=== PATIENT | male | born 1950 | race Two or more races ===

== ENCOUNTER 2020-01-06 10:07 | Day surgery (SDC) | payer OTHER, SELFPAY ==
[~2020-01-06] VITALS: Ht 162.6 cm; Wt 81.6 kg
[2020-01-06] MEDS ORDERED: MIDAZOLAM 2 MG/2 ML VIAL ONE ×2 (11:56→12:28)
[2020-01-06] MEDS ORDERED: fentaNYL citrate 0.05 MG/ML VIAL ONE (11:56)
[2020-01-06] MEDS ORDERED: LIDOCAINE 2% 100 MG/5 ML UJET TP ONE (11:56)
[2020-01-06] MEDS ORDERED: MIDAZOLAM 2 MG/2 ML VIAL IVP ONE (13:05)
[2020-01-06] MEDS ORDERED: fentaNYL citrate 0.05 MG/ML VIAL IVP ONE (13:05)
== END 2020-01-06 13:45 | disposition home or self-care (01) ==
LOC: MDS 10:07 → MFCC 10:07 → MDS 13:45
PROVIDERS: ATTEND Internal Medicine Gastroenterology
DX: Z12.11 Encounter for screening for malignant neoplasm of colon (principal); K63.5 Polyp of colon; I10 Essential (primary) hypertension; E11.9 Type 2 diabetes mellitus without complications; Z98.890 Other specified postprocedural states; Z11.59 Encounter for screening for other viral diseases; Z79.899 Other long term (current) drug therapy
CPT/HCPCS: 45385; J2250; J3010; U0003